=== PATIENT | female | born 1980 | race Two or more races ===

== ENCOUNTER → 2017-04-05 | Outpatient (CLI) | payer OTHER ==
[2017-04-05 18:13] LABS: BASOPHIL % 0.5 % (0-2); PLATELET COUNT 283 x10^3mcL (130-400); RED CELL DISTRIBUTION WIDTH 12.7 % (11.5-14.5)
[2017-04-05 18:19] LABS: ALBUMIN 4.5 g/dL (3.4-5.0); ALKALINE PHOSPHATASE 44 U/L (46-116); ALT/SGPT 14 U/L (14-59); AST/SGOT 14 U/L (15-37); BILIRUBIN TOTAL 0.27 mg/dL (0.20-1.00); CALCIUM 8.8 mg/dL (8.5-10.1); CARBON DIOXIDE 27.5 mmol/L (21-32); CHLORIDE SERUM 103 mmol/L (98-107); CREATININE SERUM 0.7 mg/dL (0.6-1.0); GFR1 > 60 mL/min; GLUCOSE SERUM 97 mg/dL (74-106); SODIUM SERUM 140 mmol/L (136-145); T4(THYROXINE) 8.5 ug/dL (4.7-13.3); TOTAL PROTEIN, SERUM 8.3 g/dL (6.4-8.2)
[2017-04-05 18:20] LABS: C REACTIVE PROTEIN < 0.2 mg/dL (<=0.9)
[2017-04-05 18:50] LABS: T3 TOTAL 0.86 ng/mL
[2017-04-05 19:12] LABS: ERYTHROCYTE SED RATE 5 mm/hr (0-20)
== END | disposition home or self-care (01) ==
LOC: LB 17:02
PROVIDERS: Family Medicine
DX: R53.82 Chronic fatigue, unspecified (principal)
CPT/HCPCS: 84439; 86376

== ENCOUNTER → 2017-07-14 | Outpatient (CLI) | payer OTHER ==
[2017-07-15 08:11] LABS: PROLACTIN 9.6 ng/mL (4.8-23.3)
== END | disposition home or self-care (01) ==
LOC: LB 08:20
DX: E07.9 Disorder of thyroid, unspecified (principal); E34.9 Endocrine disorder, unspecified; N92.3 Ovulation bleeding; E28.0 Estrogen excess